=== PATIENT | female | born 1995 | race Caucasian/White ===

== ENCOUNTER 2018-12-11 19:08 | Emergency (ER) | payer BC ==
[2018-12-11] MEDS ORDERED: Ondansetron 4 MG/2 ML SDV IVPUSH ONE (20:12)
[2018-12-11] MEDS ORDERED: HYDROmorphone 1 MG/ML Syringe IVPUSH ONE (20:12)
[2018-12-11] MEDS ORDERED: Sodium Chloride 0.9% 1,000 ML IV SCH (20:15)
--- NOTE | 2018-12-11 20:36 | EDM.PDOC ---
ED HPI GENERAL MEDICAL PROBLEM - General Chief Complaint: Abdominal Pain Stated Complaint: ABDOMINAL PAIN Time Seen by Provider: 12/11/18 19:24 Source of Information: Reports: Patient History Limitations: Reports: No Limitations - History of Present Illness INITIAL COMMENTS - FREE TEXT/NARRATIVE: This is a 23-year-old female. Onset this morning with lower abdominal pain central and right lower quadrant. It seems that during the day it is gotten worse seems to be mostly constant not waxing and waning but present. She indicates she does have a hard time going to urinate and she feels like she is locked up with her stool though she had some diarrhea a few days ago. She denies any fever or chills. She does have nausea but no vomiting. She has a history of ovarian cysts and it sort of feels that way but she is on control pills so she doesn't think she has an ovarian cyst. She still has her appendix. She denies any offer congestion or upper respiratory symptoms. Walking seems to bother her lower abdomen as well. Lower Abdomen Pain Score (Numeric/FACES): 8 - Related Data Allergies Allergy/AdvReac Type Severity Reaction Status Date / Time beeswax Allergy Swelling Verified 12/11/18 19:28 Home Meds: Home Meds Prozac. 12/11/18 [History] ED ROS GENERAL - Review of Systems Review Of Systems: See Below Constitutional: Denies: Fever, Chills HEENT: Reports: No Symptoms Respiratory: Reports: No Symptoms Cardiovascular: Reports: No Symptoms Endocrine: Reports: No Symptoms GI/Abdominal: Reports: Abdominal Pain, Constipation, Diarrhea, Nausea. Denies: Vomiting : Reports: Other (Has a hard time going) Musculoskeletal: Reports: No Symptoms Skin: Reports: No Symptoms Neurological: Reports: No Symptoms Psychiatric: Reports: No Symptoms Hematologic/Lymphatic: Reports: No Symptoms ED EXAM, GI/ABD - Physical Exam Exam: See Below Exam Limited By: No Limitations General Appearance: Alert, WD/WN, No Apparent Distress Eyes: Bilateral: Normal Appearance Ears: Normal External Exam Nose: Normal Inspection Throat/Mouth: Normal Inspection, Normal Lips, Normal Voice, No Airway Compromise Head: Normocephalic Neck: Supple Respiratory/Chest: No Respiratory Distress, Lungs Clear, Normal Breath Sounds Cardiovascular: Regular Rate, Rhythm, No Murmur GI/Abdominal Exam: Soft, Other (He does have bowel sounds. She is tender in the midline lower abdomen and the right lower quadrant, there is no masses there is no rebound noted, her upper abdomen is nontender in her left lower quadrant is nontender on palpation) Rectal (Female) Exam: Normal Exam, Normal Rectal Tone, Other (Does not appear to be any impaction noted with examination) Extremities: Normal Inspection, Normal Range of Motion Neurological: Alert, Oriented Psychiatric: Normal Affect, Normal Mood Skin Exam: Warm, Dry Course - Vital Signs Last Recorded V/S: Last Vital Signs Temp 98.0 F 12/11/18 19:20 Pulse 85 12/11/18 19:20 Resp BP 165/102 H 12/11/18 19:20 Pulse Ox 99 12/11/18 19:20 - Orders/Labs/Meds Orders: Active Orders 24 hr Category Date Time Status Pelvis Non OB Ltd [US] Stat Exams 12/11/18 21:34 Taken Sodium Chloride 0.9% [Normal Saline] 1,000 ml Med 12/11/18 20:15 Active IV ASDIRECTED Medication Orders Sodium Chloride (Normal Saline) 1,000 mls @ 500 mls/hr IV ASDIRECTED STEVEN Last Admin: 12/11/18 20:20 Dose: 500 mls/hr Labs: Laboratory Tests 12/11/18 12/11/18 12/11/18 Range/Units 20:15 20:15 20:15 WBC 9.69 (3.98-10.04) K/mm3 RBC 4.83 (3.98-5.22) M/mm3 Hgb 13.2 (11.2-15.7) gm/L Hct 41.2 (34.1-44.9) % MCV 85.3 (79.4-94.8) fl MCH 27.3 (25.6-32.2) pg MCHC 32.0 L (32.2-35.5) g/dl RDW Std Deviation 44.2 (36.4-46.3) fL Plt Count 375 H (182-369) K/mm3 MPV 11.0 (9.4-12.3) fl Neut % (Auto) 62.9 (34.0-71.1) % Lymph % (Auto) 27.0 (19.3-51.7) % [place] % (Auto) 7.1 (4.7-12.5) % Eos % (Auto) 2.6 (0.7-5.8) Baso % (Auto) 0.2 (0.1-1.2) % Neut # (Auto) 6.09 (1.56-6.13) K/mm3 Lymph # (Auto) 2.62 (1.18-3.74) K/mm3 [place] # (Auto) 0.69 H (0.24-0.36) K/mm3 Eos # (Auto) 0.25 (0.04-0.36) K/mm3 Baso # (Auto) 0.02 (0.01-0.08) K/mm3 Sodium 141 (136-145) mEq/L Potassium 3.8 (3.5-5.1) mEq/L Chloride 104 (98-107) mEq/L Carbon Dioxide 26 (21-32) mEq/L Anion Gap 14.8 (5-15) BUN 14 (7-18) mg/dL Creatinine 0.9 (0.55-1.02) mg/dL Est Cr Clr Drug Dosing 82.51 mL/min Estimated GFR (MDRD) > 60 (>60) mL/min BUN/Creatinine Ratio 15.6 (14-18) Glucose 98 (74-106) mg/dL Calcium 9.3 (8.5-10.1) mg/dL Total Bilirubin 0.2 (0.2-1.0) mg/dL AST 19 (15-37) U/L ALT 29 (14-59) U/L Alkaline Phosphatase 66 (46-116) U/L Total Protein 8.2 (6.4-8.2) g/dl Albumin 3.4 (3.4-5.0) g/dl Globulin 4.8 gm/dL Albumin/Globulin Ratio 0.7 L (1-2) HCG, Qual Negative (NEGATIVE) Urine Color (Yellow) Urine Appearance (Clear) Urine pH (5.0-8.0) Ur Specific [place] (1.005-1.030) Urine Protein (Negative) Urine Glucose (UA) (Negative) Urine Ketones (Negative) Urine Occult Blood (Negative) Urine Nitrite (Negative) Urine Bilirubin (Negative) Urine Urobilinogen (0.2-1.0) Ur Leukocyte Esterase (Negative) Urine RBC (0-5) /hpf Urine WBC (0-5) /hpf Ur Epithelial Cells (0-5) /hpf Urine Bacteria (FEW) /hpf Urine Mucus (FEW) /hpf 12/11/18 Range/Units 20:24 WBC (3.98-10.04) K/mm3 RBC (3.98-5.22) M/mm3 Hgb (11.2-15.7) gm/L Hct (34.1-44.9) % MCV (79.4-94.8) fl MCH (25.6-32.2) pg MCHC (32.2-35.5) g/dl RDW Std Deviation (36.4-46.3) fL Plt Count (182-369) K/mm3 MPV (9.4-12.3) fl Neut % (Auto) (34.0-71.1) % Lymph % (Auto) (19.3-51.7) % [place] % (Auto) (4.7-12.5) % Eos % (Auto) (0.7-5.8) Baso % (Auto) (0.1-1.2) % Neut # (Auto) (1.56-6.13) K/mm3 Lymph # (Auto) (1.18-3.74) K/mm3 [place] # (Auto) (0.24-0.36) K/mm3 Eos # (Auto) (0.04-0.36) K/mm3 Baso # (Auto) (0.01-0.08) K/mm3 Sodium (136-145) mEq/L Potassium (3.5-5.1) mEq/L Chloride (98-107) mEq/L Carbon Dioxide (21-32) mEq/L Anion Gap (5-15) BUN (7-18) mg/dL Creatinine (0.55-1.02) mg/dL Est Cr Clr Drug Dosing mL/min Estimated GFR (MDRD) (>60) mL/min BUN/Creatinine Ratio (14-18) Glucose (74-106) mg/dL Calcium (8.5-10.1) mg/dL Total Bilirubin (0.2-1.0) mg/dL AST (15-37) U/L ALT (14-59) U/L Alkaline Phosphatase (46-116) U/L Total Protein (6.4-8.2) g/dl Albumin (3.4-5.0) g/dl Globulin gm/dL Albumin/Globulin Ratio (1-2) HCG, Qual (NEGATIVE) Urine Color Light yellow (Yellow) Urine Appearance Clear (Clear) Urine pH 6.5 (5.0-8.0) Ur Specific [place] 1.025 (1.005-1.030) Urine Protein Negative (Negative) Urine Glucose (UA) Negative (Negative) Urine Ketones Negative (Negative) Urine Occult Blood Negative (Negative) Urine Nitrite Negative (Negative) Urine Bilirubin Negative (Negative) Urine Urobilinogen 0.2 (0.2-1.0) Ur Leukocyte Esterase Trace H (Negative) Urine RBC 0-5 (0-5) /hpf Urine WBC 5-10 H (0-5) /hpf Ur Epithelial Cells 0-5 (0-5) /hpf Urine Bacteria Few (FEW) /hpf Urine Mucus Few (FEW) /hpf Meds: Medications Generic Name Dose Route Start Last Admin Trade Name Freq PRN Reason Stop Dose Admin Sodium Chloride 1,000 mls @ 500 mls/hr 12/11/18 20:15 12/11/18 20:20 Normal Saline IV 500 mls/hr ASDIRECTED STEVEN Administration Discontinued Medications Generic Name Dose Route Start Last Admin Trade Name Freq PRN Reason Stop Dose Admin Hydrocodone Bitart/Acetaminophen 1 tab 12/11/18 22:54 12/11/18 23:05 [place] 325-5 Mg PO 12/11/18 22:55 1 tab ONETIME ONE Administration Hydromorphone HCl 0.5 mg 12/11/18 20:12 12/11/18 20:24 Dilaudid IVPUSH 12/11/18 20:13 0.5 mg ONETIME ONE Administration Ondansetron HCl 4 mg 12/11/18 20:12 12/11/18 20:20 Zofran IVPUSH 12/11/18 20:13 4 mg ONETIME ONE Administration - Radiology Interpretation Free Text/Narrative:: Sounds shows a normal uterus right and left ovary though she does have a small amount of fluid in the cul-de-sac possibly thought to be a 1.3 cm adnexal cyst but no acute findings. - Re-Assessments/Exams Free Text/Narrative Re-Assessment/Exam: 12/11/18 23:27 I spoke to the patient and her mother regarding the ultrasound results and the lab results. I am not actually certain what is causing her lower abdominal pain at this time. I encouraged her to drink lots of fluids and if the pain worsens markedly return to the ER. 12/11/18 23:32 I spoke to the mother specifically about if the pain worsens she is to return to the ER over the weekend otherwise follow-up with her provider this week. We did talk about the adnexal cyst that was found on the ultrasound though I don't think that's the cause of her pain. I do not believe her appendix is inflamed because her white count is normal. I don't believe she has a urinary tract infection is probably not passing a kidney stone positional blood in her urine but does not 100%. I will provide some pain medications through the [facility] for the weekend. They are both good with this. Departure - Departure Time of Disposition: 23:33 Disposition: Home, Self-Care 01 Condition: Good Clinical Impression: Lower abdominal pain - Discharge Information *PRESCRIPTION DRUG MONITORING PROGRAM REVIEWED*: No *COPY OF PRESCRIPTION DRUG MONITORING REPORT IN PATIENT TALHA: No Instructions: Abdominal Pain, Adult, [id number] Referrals: PCP,None [Primary Care Provider] - Forms: ED Department Discharge Additional Instructions: Take the medicine as needed for pain, shredder picker the medications at the [facility] machine in the lobby before you go home, if there is marked worsening of your pain over the weekend return to the ER, otherwise follow up with your family doctor next week for recheck and reevaluation - My Orders Last 24 Hours: My Active Orders 12/11/18 20:15 Sodium Chloride 0.9% [Normal Saline] 1,000 ml IV ASDIRECTED 12/11/18 21:34 Pelvis Non OB Ltd [US] Stat - Assessment/Plan Last 24 Hours: My Active Orders 12/11/18 20:15 Sodium Chloride 0.9% [Normal Saline] 1,000 ml IV ASDIRECTED 12/11/18 21:34 Pelvis Non OB Ltd [US] Stat
[2018-12-11] MEDS ORDERED: Acetaminophen/HYDROcodone 325-5 MG Tab PO ONE (22:54)
--- NOTE | 2018-12-13 17:56 | US ---
Pelvic ultrasound: Multiple real-time images were obtained transvaginally. Comparison: No prior pelvic imaging. Findings: Uterus is anteverted. No myometrial abnormality is identified. Endometrial thickness is 4 mm. Follicles noted within both ovaries. No larger cyst or solid abnormality is appreciated. Minimal free fluid is seen within the cul-de-sac believed to be physiologic. Measurements: Uterus: Length 5.5 cm, AP height 2.5 cm, transverse width 3.9 cm Right ovary: 2.7 x 1.3 x 2.4 cm Left ovary: 2.4 x 1.2 x 2.1 cm Impression: 1. No abnormality appreciated on pelvic ultrasound study. Diagnostic code #1 Agree with preliminary report issued by [email or web address] ([facility] preliminary report dictated on 12/12/18, 12:22 AM Central Time)
== END 2018-12-11 23:43 | disposition home or self-care (01) ==
LOC: JD.ED 19:08
DX: R10.31 Right lower quadrant pain (principal); Z91.048 Other nonmedicinal substance allergy status
CPT/HCPCS: 36415; 76857; 80053; 81001; 84703; 85025; 96374; 96375; 99284; A9270; J1170; J2405; J7040